=== PATIENT | female | born 1965 | race African-American/Black ===

== ENCOUNTER 2019-10-04 18:23 | Inpatient (IN) | payer OTHER, SELFPAY ==
[2019-10-04] VITALS (10 sets, daily range): BP systolic 81–120; BP diastolic 45–77; PULSE 110–123; RESP 13–20; TEMP 36.5–36.8; O2SAT 91–100; BMI 28.9
--- NOTE | ~2019-10-04 | XR_ITS ---
EXAMINATION: XR chest 1V portable INDICATION: Shortness of breath, history of left breast cancer TECHNIQUE: Portable AP chest at 0920 hours COMPARISON: 10/04/2019 FINDINGS: Patchy airspace opacities have developed in the mid and lower lung zones. A stable nodular opacity near the left costophrenic angle consistent with rounded atelectasis. There is no pleural eff usion or pneumothorax. A left subclavian chest Port-A-Cath ends with its tip in the proximal superior vena cava. There are surgical clips near the right hilum. There is widespread osseous sclerosis. IMPRESSION: 1. Patchy airspace opacities of the mid and lower lung zones, consistent with pneumonia. 2. Widespread osseous sclerosis, consistent with metastatic disease. Reviewed, dictated and finalized at location A. DCAST FIELD SUPERVISOR IMPRESSION: 1. Patchy airspace opacities of the mid and lower lung zones, consistent with p neumonia. 2. Widespread osseous sclerosis, consistent with metastatic disease.
--- NOTE | 2019-10-04 18:45 | ED.NAVMDI ---
HPI - Nausea/Vomiting/Diarrhea General Chief complaint: Nausea/Vomiting/Diarrhea Stated complaint: nausea/ vomiting Time Seen by Provider: 10/04/19 18:41 Source: patient and old records reviewed Mode of arrival: ambulatory Limitations: no limitations History of Present Illness HPI Narrative: The pt is a 54 y/o female who presents to the ED c/o N/V. Pt has a PMHx of breast CA. Pt signed out AMA today after being admitted to this hospital on 09/27/19 for N/V. She states that she was somewhat able to keep foods down while she was inpatient. Per old records, pt has presented due to similar complaints multiple times recently. She notes that she did not have any medication for her N/V at home. The pt reports weakness, but denies ABD pain. MD elicited complaint: nausea and vomiting Pertinent past history: other (Presented to ED with similar complaints multiple times recently) Associated nausea: Yes Associated abdominal pain: No Location of pain: none Associated symptoms: weakness Related Data Home Medications Medication Instructions Recorded Confirmed albuterol sulfate 2.5 mg INHALATION Q4H PRN 07/18/19 09/27/19 atorvastatin 40 mg PO DAILY 07/18/19 09/27/19 hydrocodone-acetaminophen 1 tablet PO Q8H PRN 07/18/19 09/27/19 mometasone-formoterol 2 puff INHALATION Q12H 07/18/19 09/27/19 pseudoephedrine-guaifenesin 1 tablet PO BID PRN 08/30/19 09/27/19 [Mucinex D] Allergies Allergy/AdvReac Type Severity Reaction Status Date / Time eluxadoline Allergy Severe Unknown Verified 10/04/19 18:50 Penicillins Allergy Severe Rash Verified 10/04/19 18:50 shellfish derived Allergy Severe Swelling Verified 10/04/19 18:50 of Lip/Tongue/Throat Review of Systems Review of Systems: All systems reviewed & are unremarkable except as noted in HPI and below Gastrointestinal: Gastrointestinal: Denies abdominal pain, Reports nausea and Reports vomiting Neurologic: Reports weakness PMFSH Past Medical History Medical History Anemia Anxiety Asthma Breast cancer, left Constipation Depression History of chemotherapy Oral Hyperlipidemia Hypertension Port-A-Cath in place Surgical History Surgical History H/O section History of lobectomy of lung Social History Social History Social History: She wishes to be full code status. She would not like to designate anyone to be a surrogate decision maker at this time. Smoking status: Former smoker Tobacco type: cigarettes Second hand tobacco smoke exposure: Yes Additional smoking assessment comments: pt lives with people who smoke Alcohol intake: never Substance use: never Substance use type: does not use Gender identity (if verbalized by the patient): Female Spiritual care concerns: No Agree to blood products: Yes Exam Const: General: no acute distress and ill appearing acutely and chronically Orientation/consciousness: oriented x3 HENMT: Mouth: Yes dry mucous membranes Resp: Effort & Inspection: normal respiratory effort Auscultation: clear to auscultation bilaterally Cardio: Rate: tachycardic Rhythm: regular rhythm Heart sounds: no murmurs GI: GI Palp: Yes soft, No tender and Yes ascites (Mild) Auscultation: normal bowel sounds Skin: General skin exam: normal color Neuro: General: oriented x3 and moves all extremities Speech: normal speech Extrem: General: normal to inspection Psych: Mental Status: mental status grossly normal Affect: normal affect Course Consultations Consultation #1: Discussed case with Dr. Shah, who accepts admission. Date: 10/04/19 Time: 21:47 Vital Signs Vital signs: Vital Signs Temperature 36.5 C 10/04/19 18:33 Pulse Rate 121 H 10/04/19 18:33 Respiratory Rate 20 10/04/19 18:33 Blood Pressure 81/45 L 10/04/19 18:33 Pulse Oximetry 100
[2019-10-04 19:26] LABS: Basophils Percent Auto 0.2 % (0.2-1.2); Eosinophils Percent Auto 0.1 % (0-4.4); Hematocrit 42.3 % (37.0-47.0); Immature Granulocyte Absolute 0.08 K/mm3 (0.00-0.031); Lymphocytes Absolute Auto 1.11 K/mm3 (0.9-3.2); Lymphocytes Percent Auto 13.2 % (18.3-44.2); Mean Corpuscular HGB Conc 30.7 g/dl (32-36); Mean Corpuscular Hemoglobin 26.2 pg (26-34); Mean Corpuscular Volume 85.1 fl (80-100); Monocytes Percent Auto 12.2 % (2.6-8.5); Neutrophils Absolute Auto 6.2 K/mm3 (1.3-6.7); Neutrophils Percent Auto 73.3 % (45.5-73.1); Platelet Count Result 501 k/mm3 (150-375); Red Blood Count 4.97 M/mm3 (4.2-5.4); Red Cell Distribution Width 20.9 % (11.5-14.5); White Blood Count 8.4 K/mm3 (4.5-10.0)
[2019-10-04] MEDS: ONDANSETRON INJ 4 MG/2 ML VIAL IV PUSH (19:30)
[2019-10-04] MEDS: SODIUM CHLORIDE 0.9% IV 2,000 ML 999 ML IV CONT (19:30)
[2019-10-04 19:39] LABS: Alanine Aminotransferase 50 U/L (4-35); Albumin Level 3.6 g/dL (3.5-5.1); Alkaline Phosphatase 203 U/L (38-126); Aspartate Amino Transferase 75 U/L (14-36); Bilirubin,Total 1.2 mg/dL (0.2-1.3); Blood Urea Nitrogen 76 mg/dL (7-17); Calcium 8.3 mg/dL (8.4-10.2); Carbon Dioxide 26 mmol/L (22-30); Chloride 107 mmol/L (98-107); Estimated CRCL calculation 29 ml/min; Estimated Glomerular Filt Rate 26; Glucose 129 mg/dL (65-105); Lipase 289 U/L (23-300); Potassium 3.7 mmol/L (3.4-5.0); Sodium 147 mmol/L (137-145)
[2019-10-04 21:45] LABS: Add Urine Microscopic? YES; Amorphous Sediment Urine Few; Appearance Urine Cloudy (Clear); Bacteria Urine Trace /hpf; Bilirubin Urine Negative (Negative); Blood Urine Negative (Negative); Color Urine Amber (Yellow); Glucose Urine UA Negative (Negative); Hyaline Casts Urine 30-49 /lpf; Ketones Urine Trace mg/dL (Negative); Leukocyte Esterase Ur Trace LEU/UL (Negative); Mucus Urine Few /lpf; Nitrate Urine Negative (Negative); Protein Urine 1+ mg/dL (Negative); RBC Urine 0-2 /hpf (0-2); Specific Grav Ur 1.023 (1.001-1.035); Squamous Epithelial Cell Urine Many /hpf (Few)
--- NOTE | 2019-10-04 23:34 | ADMGEN ---
This patient, Yu Vela, was admitted to IMU Room 200-01 on 10/04/19 at 2332. Patient/family oriented to hospital policies and general routines including ID bracelet, bed and alarms, visiting hours, pain management, procedures, bathroom and other care routines, personal items, smoking policy, room service/diet, and visiting hours. Valuables list has been completed. Information on how to activate the Rapid Response Team has been discussed. Patient/Family are encouraged to report perceived risks to care and to ask questions if they do not understand what they are told or what they should do.
[2019-10-04] MEDS: LACTATED RINGERS 1,000 ML 150 ML IV CONT (23:44)
[2019-10-05] VITALS (12 sets, daily range): BP systolic 96–118; BP diastolic 59–73; PULSE 99–121; RESP 12–25; TEMP 35.8–36.8; O2SAT 98–100
[2019-10-05] MEDS: ONDANSETRON INJ 4 MG/2 ML VIAL IV PUSH ×4 (00:18→17:12)
[2019-10-05] MEDS: PROMETHAZINE HCL 25 MG/ML AMPUL 12.5 MG IV PUSH ×2 (03:59→12:44)
[2019-10-05] MEDS: LACTATED RINGERS 1,000 ML 150 ML IV CONT (05:54)
[2019-10-05] MEDS: SUCRALFATE SUSP 100 MG/ML 10 ML UDC 1000 MG PO ×2 (06:49→21:10)
--- NOTE | 2019-10-05 10:16 | PM.IMHP ---
H&P: HPI History of Present Illness Chief complaint: ACUTE RENAL FAILURE Narrative: Yu Vela is a 54 year old female with stage IV breast cancer and recurrent malignant ascites who presented to the ED for evaluation of worsening nausea, vomiting, and diarrhea after leaving the hospital yesterday AMA. Patient states I was stubborn and just wanted to go home and thought I would feel better . She states her nausea/vomiting is getting better today with IV medications she tells me. She notes coffee ground emesis. No streaking monica blood. She last vomited 10 minutes prior to the visit. When asked about a potential previous discussion about hospice, she tells me that she was open for discussion but wants to feel better before doing so; she states maybe a discussion in a couple days. She has been feeling warm lately, but no chills/sweats. She has no other complaints today. No headaches, dizziness, lightheadedness, f/c/ns, cp/palpitations, sob, cough, abdominal pain/distension, diarrhea today, constipation, dysuria, hematuria, melena, brbpr, calf pain, s/sx of stroke. Review of Systems Review of Systems: All systems reviewed & are unremarkable except as noted in HPI and below PMFSH Past Medical History Medical History Anemia Anxiety Asthma Breast cancer, left Constipation Depression History of chemotherapy Oral Hyperlipidemia Hypertension Port-A-Cath in place Surgical History Surgical History H/O section History of lobectomy of lung Family History Family History Mother CHF (congestive heart failure) Gallbladder disease Daughter Diabetes mellitus unknown type Social History Social History Social History: She wishes to be full code status. She would not like to designate anyone to be a surrogate decision maker at this time. Smoking packs per day: 2 Smoking cigarettes per day: 40.0 Smoking status: Former smoker Tobacco type: cigarettes Second hand tobacco smoke exposure: Yes Additional smoking assessment comments: pt lives with people who smoke Alcohol intake: never Substance use: never Substance use type: does not use Gender identity (if verbalized by the patient): Female Spiritual care concerns: No Agree to blood products: Yes Meds Home Medications and Allergies Home Medications Medication Instructions Recorded Confirmed Type albuterol sulfate 2.5 mg INHALATION Q4H PRN 07/18/19 10/05/19 History atorvastatin 40 mg PO DAILY 07/18/19 10/05/19 History hydrocodone-acetaminophen 1 tablet PO Q8H PRN 07/18/19 10/05/19 History mometasone-formoterol 2 puff INHALATION Q12H 07/18/19 10/05/19 History pseudoephedrine-guaifenesin 1 tablet PO BID PRN 08/30/19 10/05/19 History [Mucinex D] magnesium hydroxide [Milk of 5 ml PO DAILY PRN #118 ml 09/17/19 10/05/19 Rx Magnesia] omeprazole magnesium 20 mg PO DAILY 30 Days #30 cap 09/17/19 10/05/19 Rx polyethylene glycol 3350 [Miralax] 17 g PO QAM PRN #10 each 09/17/19 10/05/19 Rx omeprazole 40 mg PO BID 30 Days #60 cap 10/04/19 10/05/19 Rx prochlorperazine maleate 5 mg PO Q8H PRN #40 tablet 10/04/19 10/05/19 Rx sucralfate 1 g PO ACHS 14 Days #560 ml 10/04/19 10/05/19 Rx albuterol sulfate 2 puff INHALATION TID PRN 10/05/19 10/05/19 History docusate sodium [DOK] 100 mg PO BID PRN 10/05/19 10/05/19 History mirtazapine 15 mg PO DAILY 10/05/19 10/05/19 History multivitamin 1 tablet PO DAILY 10/05/19 10/05/19 History ranitidine HCl 300 mg PO BID 10/05/19 10/05/19 History venlafaxine 37.5 mg PO DAILY 10/05/19 10/05/19 History Allergies Allergy/AdvReac Type Severity Reaction Status Date / Time eluxadoline Allergy Severe Unknown Verified 10/04/19 18:50 Penicillins Allergy Severe Rash Verified 10/04/19 18:
[2019-10-05] MEDS: DEXTROSE 5%/0.45% SOD CHL 1,000 ML 75 ML IV CONT (12:41)
--- NOTE | 2019-10-05 14:23 | PCPTNOTE ---
Mrs Vela was not seen for PT eval- does not feel well enought to be evaluated today. Discussed with nursing and will try eval tomorrow if patient is able. Emy Diaz PT
--- NOTE | 2019-10-05 14:44 | PC.NURSE ---
Pt sleeping at this time. Respirations steady and unlabored.
[2019-10-05] MEDS: HYDROMORPHONE HCL 1 MG/ML INJ IV PUSH (17:13)
[2019-10-05] MEDS: PANTOPRAZOLE SODIUM IV 40 MG VIAL IV PUSH (20:27)
--- NOTE | 2019-10-05 20:47 | PC.NURSE ---
This Pt, Yu Vela was transported to room 249 on 10/05/18 at 2042. Report given to LAVELL Nassar.
[2019-10-06] VITALS (7 sets, daily range): BP systolic 70–103; BP diastolic 46–64; PULSE 103–114; RESP 12–20; TEMP 36.1–36.3; O2SAT 100
[2019-10-06] MEDS: DEXTROSE 5%/0.45% SOD CHL 1,000 ML 75 ML IV CONT ×3 (01:31→20:16)
[2019-10-06] MEDS: HYDROMORPHONE HCL 1 MG/ML INJ 0.5 MG IV PUSH ×3 (02:37→15:42)
[2019-10-06] MEDS: ONDANSETRON INJ 4 MG/2 ML VIAL IV PUSH ×5 (02:37→23:56)
[2019-10-06] MEDS: SUCRALFATE SUSP 100 MG/ML 10 ML UDC 1000 MG PO ×2 (05:53→20:00)
[2019-10-06 06:19] LABS: Hematocrit 40.8 % (37.0-47.0); Hemoglobin 12.4 g/dL (12.0-15.0); Mean Corpuscular HGB Conc 30.4 g/dl (32-36); Mean Corpuscular Hemoglobin 26.3 pg (26-34); Mean Corpuscular Volume 86.6 fl (80-100); Mean Platelet Volume 12.4 fl (7.4-10.4); Platelet Count Result 420 k/mm3 (150-375); Red Blood Count 4.71 M/mm3 (4.2-5.4); Red Cell Distribution Width 20.9 % (11.5-14.5); White Blood Count 6.6 K/mm3 (4.5-10.0)
[2019-10-06 06:36] LABS: Alanine Aminotransferase 54 U/L (4-35); Albumin Level 3.4 g/dL (3.5-5.1); Alkaline Phosphatase 176 U/L (38-126); Aspartate Amino Transferase 81 U/L (14-36); Bilirubin,Total 1.1 mg/dL (0.2-1.3); Blood Urea Nitrogen 75 mg/dL (7-17); Calcium 7.8 mg/dL (8.4-10.2); Carbon Dioxide 29 mmol/L (22-30); Chloride 110 mmol/L (98-107); Estimated CRCL calculation 28 ml/min; Estimated Glomerular Filt Rate 25; Glucose 159 mg/dL (65-105); Magnesium 3.5 mg/dL (1.6-2.3); Potassium 3.6 mmol/L (3.4-5.0); Sodium 148 mmol/L (137-145)
[2019-10-06] MEDS: PANTOPRAZOLE SODIUM IV 40 MG VIAL IV PUSH ×2 (08:12→20:00)
--- NOTE | 2019-10-06 11:19 | PC.NURSE ---
Pt has IV fluids running at this time.
--- NOTE | 2019-10-06 11:59 | PC.NURSE ---
Dwight GOMEZ aware pt is unable to take her meds due to nausea and vomiting.
--- NOTE | 2019-10-06 12:07 | PM.IMPN ---
Progress Note: A&P Assessment and Plan (1) Nausea & vomiting: Qualifiers: Vomiting Intractability: non-intractable Vomiting type: unspecified Qualified Code(s): R11.2 - Nausea with vomiting, unspecified Code(s): R11.2 - Nausea with vomiting, unspecified Status: Acute Assessment and Plan: Symptoms worse this morning, but have since improved after pain medications and zofran. CT abdomen on previous admission shows gallbladder distention may be secondary to fasting and wall thickening seen on previous admission; pancreas unremarkable. Ultimately felt to be related to her metastatic cancer, chemotherapy, recurring malignant ascites. She did not want to speak with hospice today, but states today she would like to discuss this with her family first. Continue FC status. Will discuss further Currently on carafate and compazine, PPI. Dr Comer covering for Dr Prado and was consulted on previous stay. Recommended MRI brain to assess for any cause of vomiting/ evidence of metastasis. MRI brain showed no acute findings. Noted recommendation for GI evaluation. Patient had EGD per Dr Freeman previous stay which showed erosive esophagitis. PPI IV BID. Trend H&H with dark emesis per nursing (2) Pneumothorax: Qualifiers: Pneumothorax type: spontaneous, secondary Qualified Code(s): J93.12 - Secondary spontaneous pneumothorax Code(s): J93.9 - Pneumothorax, unspecified Status: Acute Assessment and Plan: Small left pneumothorax noted on imaging on 10/04 Hemodynamically stable, no dyspnea or hypoxia. No recent injury or falls. Monitor closely. Plan for short-interval follow up after discharge or during stay if she stays into next week (3) Hypertension: Code(s): I10 - Essential (primary) hypertension Status: Acute Assessment and Plan: BP 103/64 today Monitor closely (4) Malignant neoplasm of overlapping sites of left female breast: Qualifiers: Estrogen receptor status: unspecified Qualified Code(s): C50.812 - Malignant neoplasm of overlapping sites of left female breast Code(s): C50.812 - Malignant neoplasm of overlapping sites of left female breast Status: Acute Assessment and Plan: With metastasis to bone. Undergoing chemotherapy with Dr Prado. Consider Oncology consultation again during this stay (5) Ascites: Onset Date: Unknown Qualifiers: Ascites type: malignant Qualified Code(s): R18.0 - Malignant ascites Code(s): R18.8 - Other ascites Status: Acute Assessment and Plan: Recurrent malignant ascites. S/p therapeutic paracentesis 09/27. Previous aspirates have demonstrated adenocarcinoma. Consider paracentesis if worsened distension tomorrow (6) LOR (acute kidney injury): Code(s): N17.9 - Acute kidney failure, unspecified Status: Acute Assessment and Plan: May be related to hypotension and hypoperfusion with concomitant hypotension with dehydration. Cr fluctuating in past. Cr 2.50 today Will hold IV fluids as abdomen more distended today (7) Diarrhea: Code(s): R19.7 - Diarrhea, unspecified Status: Acute Assessment and Plan: Patient started on laxatives previously due to constipation. Will hold these for now Monitor Subjective Date/time seen: 10/06/19 12:07 Interval history: Yu Vela is a 54 year old female with stage IV breast cancer and recurrent malignant ascites who is here for intractable nausea and vomiting. Patient was having n/v this morning but then got pain medication/zofran later this morning which she says has helped a lot. She has no other complaints. She th
--- NOTE | 2019-10-06 15:43 | PCPTNOTE ---
Attempted to eval this patient today...pt declined, also declined yesterday...pt not feeling well (understatement) she barely has breath and stamina to speak with therapist...spoke with clinician, and he will put in PT/OT HOLD orders
[2019-10-06] MEDS: MIDODRINE HCL 2.5 MG TABLET 5 MG PO (18:29)
[2019-10-06] MEDS: HYDROMORPHONE HCL 1 MG/ML INJ IV PUSH ×2 (20:01→23:56)
[2019-10-07] VITALS (7 sets, daily range): BP systolic 62–99; BP diastolic 37–78; PULSE 99–134; RESP 18–22; TEMP 36–36.1; O2SAT 92–100
[2019-10-07] MEDS: ONDANSETRON INJ 4 MG/2 ML VIAL IV PUSH (04:42)
[2019-10-07] MEDS: HYDROMORPHONE HCL 1 MG/ML INJ IV PUSH (04:43)
[2019-10-07 05:09] LABS: Hematocrit 40.3 % (37.0-47.0); Hemoglobin 12.2 g/dL (12.0-15.0); Mean Corpuscular HGB Conc 30.3 g/dl (32-36); Mean Corpuscular Hemoglobin 26.4 pg (26-34); Mean Corpuscular Volume 87.2 fl (80-100); Mean Platelet Volume 12.6 fl (7.4-10.4); Platelet Count Result 397 k/mm3 (150-375); Red Blood Count 4.62 M/mm3 (4.2-5.4); Red Cell Distribution Width 21.1 % (11.5-14.5); White Blood Count 6.9 K/mm3 (4.5-10.0)
[2019-10-07 05:26] LABS: Alanine Aminotransferase 79 U/L (4-35); Albumin Level 3.3 g/dL (3.5-5.1); Alkaline Phosphatase 219 U/L (38-126); Aspartate Amino Transferase 139 U/L (14-36); Bilirubin,Total 1.5 mg/dL (0.2-1.3); Blood Urea Nitrogen 79 mg/dL (7-17); Carbon Dioxide 27 mmol/L (22-30); Chloride 106 mmol/L (98-107); Estimated CRCL calculation 16 ml/min; Estimated Glomerular Filt Rate 13; Glucose 183 mg/dL (65-105); Magnesium 3.6 mg/dL (1.6-2.3); Potassium 3.6 mmol/L (3.4-5.0); Sodium 146 mmol/L (137-145)
[2019-10-07] MEDS: SUCRALFATE SUSP 100 MG/ML 10 ML UDC 1000 MG PO (06:30)
[2019-10-07] MEDS: PANTOPRAZOLE SODIUM IV 40 MG VIAL IV PUSH (08:35)
--- NOTE | 2019-10-07 08:37 | PM.IMPN ---
Progress Note: A&P Assessment and Plan (1) Nausea & vomiting: Qualifiers: Vomiting Intractability: non-intractable Vomiting type: unspecified Qualified Code(s): R11.2 - Nausea with vomiting, unspecified Code(s): R11.2 - Nausea with vomiting, unspecified Status: Acute Assessment and Plan: Patient condition is worsening today. She became hypotensive yesterday and with little results from midodrine 5 mg TID. No reports of N/V, but patient looks very ill and seems disoriented. I contacted [employer] and assessed the patient. CXR at bedside appeared to be PNA, likely aspiration due to n/v. Started on IV cefepime and Flagyl due to allergies. Will transfer to IMU for further care. Brother, Mariano, came to bedside and saw patient's condition; stated he will be back with her Daughter, the MARIA ESTHER. Gave CC his contact information. CT abdomen on previous admission shows gallbladder distention may be secondary to fasting and wall thickening seen on previous admission; pancreas unremarkable. Ultimately felt to be related to her metastatic cancer, chemotherapy, recurring malignant ascites. Currently on carafate and compazine, PPI. Discontinued Dilaudid IV as this was likely worsening SOB Dr Comer covering for Dr Prado and was consulted on previous stay. Recommended MRI brain to assess for any cause of vomiting/ evidence of metastasis. MRI brain last stay showed no acute findings. Noted recommendation for GI evaluation. Patient had EGD per Dr Freeman previous stay which showed erosive esophagitis. PPI IV BID. H&H stable today, although is still hypotensive (2) Pneumothorax: Qualifiers: Pneumothorax type: spontaneous, secondary Qualified Code(s): J93.12 - Secondary spontaneous pneumothorax Code(s): J93.9 - Pneumothorax, unspecified Status: Acute Assessment and Plan: Small left pneumothorax noted on imaging on 10/04 Hemodynamically stable, no dyspnea or hypoxia. No recent injury or falls. Monitor closely. Plan for short-interval follow up after discharge or during stay if she stays into next week (3) Hypertension: Code(s): I10 - Essential (primary) hypertension Status: Acute Assessment and Plan: Consistently Hypotensive overnight 1L Bolus, IV fluids Monitor closely (4) Malignant neoplasm of overlapping sites of left female breast: Qualifiers: Estrogen receptor status: unspecified Qualified Code(s): C50.812 - Malignant neoplasm of overlapping sites of left female breast Code(s): C50.812 - Malignant neoplasm of overlapping sites of left female breast Status: Acute Assessment and Plan: With metastasis to bone. Undergoing chemotherapy with Dr Prado. Consider Oncology consultation again during this stay (5) Ascites: Onset Date: Unknown Qualifiers: Ascites type: malignant Qualified Code(s): R18.0 - Malignant ascites Code(s): R18.8 - Other ascites Status: Acute Assessment and Plan: Recurrent malignant ascites. S/p therapeutic paracentesis 09/27. Previous aspirates have demonstrated adenocarcinoma. Consider paracentesis if worsened distension tomorrow (6) LOR (acute kidney injury): Code(s): N17.9 - Acute kidney failure, unspecified Status: Acute Assessment and Plan: May be related to hypotension and hypoperfusion with concomitant hypotension with dehydration. Cr fluctuating in past. Cr 4.30 today, Nephrology consulted, possible emergent dialysis Will IV fluids as abdomen more distended today (7) Diarrhea: Code(s): R19.7 - Diarrhea, unspecified Status: Acute Assessment and Plan: Patient started on laxatives previously due to
--- NOTE | 2019-10-07 09:28 | PM.IMPN ---
Progress Note: A&P Assessment and Plan (1) Acute respiratory failure: Qualifiers: Respiratory failure complication: hypoxia Qualified Code(s): J96.01 - Acute respiratory failure with hypoxia Code(s): J96.00 - Acute respiratory failure, unspecified whether with hypoxia or hypercapnia Status: Acute Assessment and Plan: Increased rsepiratory difficulty this morning. Currently full code. Mold Engraver aware of situation and has seen patient. Chest xray with airspace opacities as noted below. Cover for aspiration with known nausea/vomiting. IV metronidazole and cefepime started. Discussed possible comfort care with patient given known metastatic breast cancer. Family to return and will discuss in more detail. Nebulizer treatments. Move to IMU for closer monitoring while awaiting family arrival. Able to speak with eldest daughter, Irasema, present shortly after initial exam with PA. Explained patient's current poor status with poor prognosis. We did discuss possibility of moving to comfort care / hospice. Daughter to speak mother after our discussion. Unfortunately, rapid response called at approximately 11:00 a.m. with deterioration patient. PA and assistant oceanographer present. Daughter distraught with other family members present. Daughter initially unable to give clear direction regarding code status. With continued deterioration of patient, code blue was called while I was discussing code status with daughter. Daughter requested discontinuation code allowing patient to pass. Daughter and other family members understandably upset after patient's passing but accepting. Family advised to let me know of any needs. Condolenscenses given. Total time spent in critical care today is 40 minutes. (2) Pneumonia: Qualifiers: Aspiration pneumonia type: due to vomit Laterality: right Lung location: lower lobe of lung Pneumonia type: aspiration pneumonia Qualified Code(s): J69.0 - Pneumonitis due to inhalation of food and vomit Code(s): J18.9 - Pneumonia, unspecified organism Status: Acute Assessment and Plan: Official radiology reading with patchy airspace opacities of mid and lower lung zones. On review of image with assistant oceanographer, appears worse RLL. IV antibiotics, nebulizer treatments and oxygen as needed. (3) Hypotension: Qualifiers: Hypotension type: unspecified hypotension type Qualified Code(s): I95.9 - Hypotension, unspecified Code(s): I95.9 - Hypotension, unspecified Status: Acute Assessment and Plan: Blood pressure has been lower overnight although had already been low with midodrine started yesterday. Will leave midodrine in place while awaiting family arrival. (4) Malignant neoplasm of overlapping sites of left female breast: Qualifiers: Estrogen receptor status: unspecified Qualified Code(s): C50.812 - Malignant neoplasm of overlapping sites of left female breast Code(s): C50.812 - Malignant neoplasm of overlapping sites of left female breast Status: Acute Assessment and Plan: Sees Dr. Prado as outpatient. Last chemotherapy in late August 2019. Will discuss possible hospice care further once family here. (5) Bone metastasis: Code(s): C79.51 - Secondary malignant neoplasm of bone Status: Acute Assessment and Plan: Has had treatment of metastatic breast cancer as noted above. Per last note from oncology, palliative treatment. (6) Acute renal failure: Qualifiers: Acute renal failure type: unspecified Qualified Code(s): N17.9 - Acute kidney failure, unspecified Code(s): N17.9 - Acute kidney failure, unspecified Status: Acute Assessment and Plan: Creatinine up to 4.30 today. Has been hypotensive. If does not want to move to comfort care, may need dialysis. Will follow. (7) Nausea & vomiting: Qualifiers: Vomiting Intractability: non-intractab
--- NOTE | 2019-10-07 09:42 | PCRCNOTE ---
Called for STAT treatment @[phone] pt remains with nursing unable to give tx.
[2019-10-07] MEDS: IPRATROPIUM BR 0.02% INH SOLN 0.5 MG/2.5 ML VIAL INHALATION (09:49)
[2019-10-07] MEDS: ALBUTEROL SULFATE NEB 2.5 MG/0.5 ML INH INHALATION (09:49)
--- NOTE | 2019-10-07 09:49 | PC.NURSE ---
Dwight Herrera, Dr. Thapa, and Raven Meyers RN responded to the bedside around 0900. Patient increasingly short of breath. Family notified and her brother came into the room around 0905. See Vital signs documented. Orders received. See orders.
--- NOTE | 2019-10-07 11:23 | PM.DDS ---
Discharge Sum: Prov Provider Primary care physician: UNKNOWN,DOCTOR <Dwight Herrera PA-C - Last Filed: 10/11/19 17:46> Admitting provider: Ulices Shah MD <Dwight Herrera PA-C - Last Filed: 10/11/19 17:46> Consults: 10/07/19 09:07 Consult to Physician Routine Comment: Consulting Provider: Daryl Dixon Reason for consultation: decreased urine output, elevated Creatinine Has provider been notified: Yes *Patient had prior to being evaluated <Dwight Herrera PA-C - Last Filed: 10/11/19 17:46> Discharge Sum: Diag Contributing Factors (1) Acute respiratory failure: (2) Pneumonia: (3) Hypotension: (4) Malignant neoplasm of overlapping sites of left female breast: (5) Bone metastasis: (6) Acute renal failure: (7) Nausea & vomiting: (8) Ascites: (9) DVT prophylaxis: Discharge Sum: Summary Date and Time Date of admission: 10/04/19 21:51 <Dwight Herrera PA-C - Last Filed: 10/11/19 17:46> Date of : 10/07/19 <Dwight Herrera PA-C - Last Filed: 10/11/19 17:46> Time of : 11:05 <Dwight Herrera PA-C - Last Filed: 10/11/19 17:46> Summary Details: Patient a 54 yo F with known Stage IV Breast CA with 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 Patient presented with intractable N/V. Patient had paracentesis on 09/27, removing 5L of fluid. Please see H&P for further details. Presenting VS: BP 81/45, HR 121, RR 20, temp 97.7, sat 100% RA Presenting pertinent labs: WBC 8.4, BUN 76, Cr 2.40 (1 increased to 4.30), CrCl 29, AST 75, ALT 50, Alk phos 203, lipase 289. CBC, coag, CMP, UA otherwise unremarkable Micro: UC negative; BCs negative after 5 days Imagin/3 CXR (previous hospital stay) Impression: 1: Small residual left basilar pneumothorax with underlying compressive atelectasis. 2: Diffuse osseous sclerosis, consistent with metastatic disease. 10/07 CXR IMPRESSION: 1. Patchy airspace opacities of the mid and lower lung zones, consistent with pneumonia. 2. Widespread osseous sclerosis, consistent with metastatic disease. ECG: none Patient was admitted to the hospitalist service for further management of intractable N/V and discomfort likely associated with extent of stage IV breast cancer. Patient was treated with IV pain medications and compazine and zofran which had various degrees of effectiveness during stay. Patient felt less n/v with pain medications and compazine. Patient was found to have historically soft blood pressures. However, on 10/06, patient had persistent hypotension; midodrine was initiated with little effect on BP through the night. The following day, on 10/07, the patient was found to be alert, but SOB and answering very few questions; she was still hypotensive. The intesivist and supervising physician were notified and patient was evaluated by intesivist that morning. Stat CXR was obtained and findings were consistent with pneumonia; likely aspiration pneumonia given n/v; This was a change from CXR obtained on 10/04. Patient was started on IV flagyl and cefepime and given 1L NS bolus which patient seemingly improved with this, able to answer more questions. Nephrology was consulted given her acute renal failure over night going from Cr of 2.50 to 4.30 overnight; School Physical Therapist unable to see patient due to rapid decline in patient's condition. Patient was seemingly septic with pneumonia being a source of infection. At that time, patient was to be transferred to IMU for higher level of care. Shortly after the initial visit for that day, patient's family was notified of patient's rapid deterioration in her condition. Of note, Code Status and possible Hospice Care were mentioned to patient multiple times during her frequent hospital stays, including d
--- NOTE | 2019-10-07 11:26 | PC.NURSE ---
I came to the patients room at 1048 to start her antibiotic and fluids. Patient was not responding. She was drooling a brown liquid and respirations were slowed and shallow. Dwight Herrera called to the room. Vital signs taken. Rapid response called. Patient lost respirations while in the room. Lucio fontaine called and CPR began. See Lucio fontaine note for further details.
== END 2019-10-07 11:02 | disposition expired | DRG 469 ==
LOC: ANHED 22:06 → ANHIMU 23:06 → ANH2MED 10-10 09:12 → ANHIMU 10-10 09:12
PROVIDERS: Physician Assistant; Admitting Provider Family Medicine; Emergency Provider Emergency Medicine; Visit Provider Hospitalist
DX: N17.9 Acute kidney failure, unspecified (principal); J96.00 Acute respiratory failure, unspecified whether with hypoxia or hypercapnia; A41.9 Sepsis, unspecified organism; J69.0 Pneumonitis due to inhalation of food and vomit; C50.812 Malignant neoplasm of overlapping sites of left female breast; C79.51 Secondary malignant neoplasm of bone; R18.8 Other ascites; J93.12 Secondary spontaneous pneumothorax; E78.5 Hyperlipidemia, unspecified; I10 Essential (primary) hypertension; E86.0 Dehydration; R19.7 Diarrhea, unspecified; Z87.891 Personal history of nicotine dependence; D64.9 Anemia, unspecified
CPT/HCPCS: 36415; 71045; 80053; 81001; 83690; 83735; 85025; 85027; 87040; 87086; 87088; 94640; 96361; 96374; 97165; 99291; A9270; C9113; J1170; J1642; J2405; J2550; J7030; J7120